=== PATIENT | female | born 1940 | race Hispanic/Latino ===

== ENCOUNTER 2017-04-18 14:36 | Observation (INO) | payer MEDICARE, BC ==
[2017-04-18 14:37] VITALS: BMI 25.2
--- NOTE | 2017-04-18 14:53 | ED PDOC ---
Arrival/HPI - General Historian: Patient, Family - History of Present Illness Time/Duration: Prior to Arrival Symptom Onset: Sudden Symptom Course: Worsening Quality: Pressure Severity Level: Severe Activities at Onset: Rest Context: Home <Татьяна Green - Last Filed: 04/18/17 16:48> <Francoise Hackett - Last Filed: 04/18/17 17:39> - General Chief Complaint: Chest Pain Time Seen by Provider: 04/18/17 14:48 - History of Present Illness Narrative History of Present Illness (Text): 04/18/17 15:03 This is a 76Y F with PMH CAD s/p CABG, stent and ICD who came to ED for sudden onset chest pain. It started 15min ago while she was at home. She is with her daughter who said they just had a meal and then patient had sudden onset of chest pain. This pain has not happened before. It is substernal and radiates down her L arm. She denies vision changes, trauma, SOB, n/v/d, numbness/tingling , fever or chills. Her tooling supervisor is Dr. Naik who she follows up with regularly. (Татьяна Green) Past Medical History - Provider Review Nursing Documentation Reviewed: Yes - Travel History Have you recently traveled outside [place] w/in the past 3 mons?: No - Infectious Disease Hx of Infectious Diseases: None - Cardiac Hx Hypertension: Yes Other/Comment: Defib - Musculoskeletal/Rheumatological Hx Falls: No - Gastrointestinal Hx Gastrointestinal Disorders: Yes Hx Constipation: Yes - Genitourinary/Gynecological Hx Genitourinary Disorders: No Hx Reproductive Disorders: No - Psychiatric Hx Substance Use: No - Surgical History Hx Coronary Artery Bypass Graft: Yes Hx Open Heart Surgery: Yes <Татьяна Green - Last Filed: 04/18/17 16:48> Family/Social History - Physician Review Nursing Documentation Reviewed: Yes Family/Social History: Hypertension Smoking Status: Never Smoked Hx Alcohol Use: No Hx Substance Use: No <Татьяна Green - Last Filed: 04/18/17 16:48> Allergies/Home Meds <Татьяна Green - Last Filed: 04/18/17 16:48> <Francoise Hackett - Last Filed: 04/18/17 17:39> Allergies/Adverse Reactions: Allergies No Known Allergies Allergy (Verified 04/18/17 14:51) Home Medications: Home Meds Medication Instructions Recorded Confirmed Unobtainable 04/18/17 04/18/17 Review of Systems - Physician Review All systems were reviewed & negative as marked: Yes - Review of Systems Constitutional: Normal. absent: Fatigue, Fevers Eyes: Normal. absent: Vision Changes ENT: Normal. absent: Hearing Changes Respiratory: Normal. absent: SOB, Cough Cardiovascular: Chest Pain. absent: Edema Gastrointestinal: Normal. absent: Abdominal Pain, Diarrhea, Nausea, Vomiting Genitourinary Female: Normal. absent: Dysuria, Frequency Musculoskeletal: Normal. absent: Arthralgias, Back Pain Neurological: Normal. absent: Headache, Dizziness Endocrine: Normal. absent: Diaphoresis Psychiatric: Normal. absent: Anxiety <Татьяна Green - Last Filed: 04/18/17 16:48> Physical Exam Vital Signs Reviewed: Yes Temperature: Afebrile Blood Pressure: Normal Pulse: Regular Respiratory Rate: Normal Appearance: Positive for: Well-Appearing, Non-Toxic, Comfortable Pain Distress: None Mental Status: Positive for: Alert and Oriented X 3 - Systems Exam Head: Present: Atraumatic, Normocephalic Pupils: Present: PERRL Extroacular Muscles: Present: EOMI Conjunctiva: Present: Normal Mouth: Present: Moist Mucous Membranes Neck: Present: Normal Range of Motion Respiratory/Chest: Present: Clear to Auscultation, Good Air Exchange, Other ( scar on chest midline- clear dry healed ). No: Respiratory Distress, Accessory Muscle Use Cardiovascular: Present: Regular Rate and Rhythm, Normal S1, S2. No: Murmurs Abdomen: Present: Normal Bowel Sounds. No: Tenderness, Distention, Peritoneal Signs Back: Present: Normal Inspection Upper Extremity: Present: Normal Inspection. No: Cyanosis, Edema Lower Extremity: Present: Normal Inspection. No: Edema Neurological: Present: GCS=15, CN II-XII Intact, Speech Normal Skin: Present: Warm, Dry, Normal Color. No: Rashes Psychiatric: Present: Alert, Oriented x 3, Normal Insight, Normal Concentration <Татьяна Green - Last Filed: 04/18/17 16:48> <Francoise Hackett - Last Filed: 04/18/17 17:39> Vital Signs Temp Pulse Resp BP Pulse Ox 04/18/17 15:12 80 18 111/55 L 95 04/18/17 15:05 81 16 124/59 L 97 04/18/17 14:48 98.0 F 83 18 136/67 100 Medical Decision Making Re-evaluation Time: 15:24 Reassessment Condition: Improving,but remains with symptoms <NormaТатьяна - Last Filed: 04/18/17 16:48> <Francoise Hackett - Last Filed: 04/18/17 17:39> ED Course and Treatment: 04/18/17 15:03 Impression: This is a 76Y F with PMH CAD s/p CABG and stent who came to ED for sudden onset chest pain Differential Diagnosis included but are not limited to: chest pain r/o ACS versus dissection Plan: -- EKG -- CXR -- CBC, CMP, Cardiac ISO -- ASA, Morphine -- Reassess and disposition EKG (1) Ordered, reviewed, and independently interpreted the EKG. Rate : 84 BPM Rhythm : NSR Interpretation : No ST-segment elevations or depressions, no T-wave inversions, normal intervals. Comparison : Similar to previous EKG EKG (2): Ordered, reviewed, and independently interpreted the EKG. Rate : 80 BPM Rhythm : NSR Interpretation : No ST-segment elevations or depressions, no T-wave inversions, normal intervals. Comparison : Similar to previous EKG. EKG (3): Ordered, reviewed, and independently interpreted the EKG. Rate : 78 BPM Rhythm : NSR Interpretation : No ST-segment elevations or depressions, no T-wave inversions, normal intervals. Comparison : Similar to previous EKG. CXR Portable HISTORY: chest pain COMPARISON: 08/04/2016. FINDINGS: LUNGS: There are low lung volumes. There is a running suture in the right lateral upper lobe. No focal consolidation. PLEURA: No significant pleural effusion identified, no pneumothorax apparent. CARDIOVASCULAR: The heart is normal in size. Status post CABG. There is a left sided AICD. OSSEOUS STRUCTURES: No significant abnormalities. VISUALIZED UPPER ABDOMEN: Normal. OTHER FINDINGS: None. IMPRESSION: No acute findings. Progress Notes: 04/18/17 15:05 Repeat EKG x 3 for suspicion of STEMI on leads V1-V3. No elevation seen. Patient reports she still has pain, but has slightly improved. Labs noted to have elevated WBC and mild hypokalemia. Troponin was negative. Potassium Replaced. Discussed results and plan to admit with patient who expresses understanding. All questions answered and there is agreement with the plan. Called Dr. Naik and Dr. Bhatia. Awaiting call back. 04/18/17 16:[address] Naik who is aware of the patient's admit. He reports that Dr. Hughes in the building and to page him. Dr. Hughes paged. Repeat EKG ordered due to continued chest pain. Another Morphine ordered as well. Patient refused Morphine at this time. Dr. Bhatia accepts patient into his service. Dr. Hughes aware of patient. Reports he will visit her in ED. EKG (4): Ordered, reviewed, and independently interpreted the EKG. Rate : 80 BPM Rhythm : NSR Interpretation : No ST-segment elevations or depressions, no T-wave inversions, normal intervals. Comparison : Similar to Previous EKG (Татьяна Green) A 76 year old female with chest pain. In agreement with resident note, which includes further HPI details. Patient was seen and evaluated with resident, came up with plan and treatment together. Serial ekgs ordered and reviewed. Cxray negative. Trop x [address] Hughes evaluated patient at bedside. 04/18/17 15:[address] Bhatia, who accepts patient admission to telemetry observation for chest pain. Cardiac consult placed. On re-evaluation, patient feels better and is in no acute distress. 04/18/17 17:34 (Francoise Hackett) - Lab Interpretations Lab Results: 04/18/17 14:45 04/18/17 14:45 Lab Results 04/18/17 14:45: PT 10.8, INR 1.00 04/18/17 14:45: Sodium 140, Potassium 3.1 L, Chloride 103, Carbon Dioxide 25, Anion Gap 15, BUN 18, Creatinine 0.9, Est GFR ( Amer) > 60, Est GFR (Non- Af Amer) > 60, Random Glucose 114 H, Calcium 9.1, Total Bilirubin 0.6, AST 26, ALT 31, Alkaline Phosphatase 86, Lactate Dehydrogenase 521, Total Creatine Kinase 53, Troponin I < 0.01, Total Protein 7.1, Albumin 4.2, Globulin 2.9, Albumin/Globulin Ratio 1.4 04/18/17 14:45: WBC 14.1 H D, RBC 4.29, Hgb 13.1, Hct 38.9, MCV 90.7, MCH 30.5, MCHC 33.7, RDW 13.2, Plt Count 209, MPV 10.9, Gran % 69.5 H, Lymph % (Auto) 19.3 L, [place] % (Auto) 9.9 H, Eos % (Auto) 1.2 L, Baso % (Auto) 0.1, Gran # 9.82 H, Lymph # 2.7, [place] # 1.4 H, Eos # 0.2, Baso # 0.02 - RAD Interpretation Radiology Orders: 04/18/17 14:52 CXR [CHEST PORTABLE] [RAD] Stat - Medication Orders Current Medication Orders: Aspirin (Aspirin Chewable) 81 mg PO DAILY FABRIZIO Clopidogrel Bisulfate (Plavix) 300 mg PO ONCE ONE Stop: 04/19/17 06:01 Pantoprazole Sodium (Protonix 40mg Ivpb) 40 mg in 100 mls @ 200 mls/hr IV STAT STA Stop: 04/18/17 17:57 Pantoprazole Sodium (Protonix Ec Tab) 40 mg PO DAILY FABRIZIO Potassium Chloride (K-Dur 20 Meq Er Tab) 40 meq PO ONCE ONE Stop: 04/18/17 20:01 Simethicone (Mylicon Liq) 40 mg PO QID FABRIZIO Discontinued Medications Aspirin (Ecotrin) 325 mg PO STAT STA Stop: 04/18/17 14:55 Last Admin: 04/18/17 15:03 Dose: 325 mg Aspirin (Aspirin) Confirm Administered Dose 325 mg .ROUTE .STK-MED ONE Stop: 04/18/17 15:01 Last Admin: 04/18/17 15:02 Dose: Morphine Sulfate (Morphine) 2 mg IVP STAT STA Stop: 04/18/17 14:55 Last Admin: 04/18/17 15:00 Dose: 2 mg Re-Assess: FRANK Pain Assessment Document 04/18/17 16:00 CO (Rec: 04/18/17 16:30 [id number] Pain Reassessment Is this a pain reassessment? Yes Sleep Is patient sleeping during reassessment? No Presence of Pain Presence of Pain Yes Pain Scale Used Pain Scale Used Numeric Location Pain Location Body Site Chest Description Description Constant Intensity of Pain at present 10 Acceptable Level of Pain 2 Morphine Sulfate (Morphine) Confirm Administered Dose 2 mg .ROUTE .STK-MED ONE Stop: 04/18/17 15:01 Last Admin: 04/18/17 15:09 Dose: Pantoprazole Sodium (Protonix Ec Tab) 40 mg PO STAT STA Stop: 04/18/17 16:52 Last Admin: 04/18/17 17:16 Dose: 40 mg Potassium Chloride (K-Dur 20 Meq Er Tab) 40 meq PO STAT STA Stop: 04/18/17 15:53 Last Admin: 04/18/17 16:29 Dose: 40 meq Simethicone (Mylicon Liq) 40 mg PO STAT STA Stop: 04/18/17 17:24 <Татьяна Green - Last Filed: 04/18/17 16:48> - PA / ENERGY OPERATIONS VICE PRESIDENT / Resident Statement MD/DO has reviewed & agrees with the documentation as recorded. MD/DO has examined the patient and agrees with the treatment plan. - Scribe Statement The provider has reviewed the documentation as recorded by the Scribe <Francoise Hackett - Last Filed: 04/18/17 17:39> - Scribe Statement Merly Meyers Provider Scribe Attestation: All medical record entries made by the Scribe were at my direction and personally dictated by me. I have reviewed the chart and agree that the record accurately reflects my personal performance of the history, physical exam, medical decision making, and the department course for this patient. I have also personally directed, reviewed, and agree with the discharge instructions and disposition. (Francoise Hackett) Disposition/Present on Arrival - Present on Arrival Any Indicators Present on Arrival: No History of DVT/PE: No History of Uncontrolled Diabetes: No Urinary Catheter: No History of Decub. Ulcer: No History Surgical Site Infection Following: CABG - Mediastinitis - Disposition Have Diagnosis and Disposition been Completed?: Yes Disposition Time: 15:45 Patient Plan: Admission <Татьяна Green - Last Filed: 04/18/17 16:48> <Francoise Hackett - Last Filed: 04/18/17 17:39> - Disposition Diagnosis: Chest pain Disposition: HOSPITALIZED Patient Problems: Current Active Problems Problem Status Onset Chest pain Acute Condition: FAIR
[2017-04-18] MEDS ORDERED: Aspirin 325 mg EC Tablets PO STA (14:54)
[2017-04-18] MEDS ORDERED: Morphine 2 mg/ml ISec IVP STA ×2 (14:54→16:04)
[2017-04-18] MEDS ORDERED: Morphine 2 mg/ml ISec ONE (15:00)
[2017-04-18 15:14] LABS: BASO # 0.02 K/mm3 (0.0-2.0); BASO % 0.1 % (0.0-3.0); EOS # 0.2 (0.0-0.7); EOS % 1.2 % (1.5-5.0); GRAN # 9.82 (1.4-6.5); GRAN % 69.5 % (50.0-68.0); HEMATOCRIT 38.9 % (36.0-48.0); LYMPH # 2.7 (1.2-3.4); LYMPH % 19.3 % (22.0-35.0); MEAN CELL VOLUME 90.7 fl (80.0-105.0); MEAN CORPUSCULAR HEMOGLOBIN 30.5 pg (25.0-35.0); MEAN CORPUSCULAR HGB CONC 33.7 g/dl (31.0-37.0); MEAN PLATELET VOLUME 10.9 fl (7.0-11.0); MONO # 1.4 (0.1-0.6); MONO % 9.9 % (1.0-6.0); RED CELL DISTRIBUTION WIDTH 13.2 % (11.5-14.5); WHITE BLOOD COUNT 14.1 10^3/ul (4.5-11.0)
[2017-04-18 15:22] LABS: ALB/GLOB RATIO 1.4 (1.1-1.8); ALKALINE PHOSPHATASE 86 U/L (38-126); ALT/SGPT 31 U/L (7-56); AST/SGOT 26 U/L (14-36); BILIRUBIN,TOTAL 0.6 mg/dL (0.2-1.3); BLOOD UREA NITROGEN 18 mg/dL (7-21); CALCIUM 9.1 mg/dL (8.4-10.5); CARBON DIOXIDE 25 mmol/L (21-33); CHLORIDE 103 mmol/L (98-107); GFR AFRICAN-AMERICAN > 60; GLUCOSE,RANDOM 114 mg/dL (70-110); POTASSIUM 3.1 mmol/L (3.6-5.0); SODIUM 140 mmol/L (132-148); TOTAL PROTEIN 7.1 g/dL (5.8-8.3)
--- NOTE | 2017-04-18 15:30 | RAD ---
HISTORY: chest pain COMPARISON: 08/04/2016. FINDINGS: LUNGS: There are low lung volumes. There is a running suture in the right lateral upper lobe. No focal consolidation. PLEURA: No significant pleural effusion identified, no pneumothorax apparent. CARDIOVASCULAR: The heart is normal in size. Status post CABG. There is a left sided AICD. OSSEOUS STRUCTURES: No significant abnormalities. VISUALIZED UPPER ABDOMEN: Normal. OTHER FINDINGS: None. IMPRESSION: No acute findings.
[2017-04-18 15:39] LABS: TROPONIN I < 0.01 ng/mL
[2017-04-18] MEDS ORDERED: Potassium Chloride 20 mEq ER Tab PO STA (15:52)
[2017-04-18] MEDS ORDERED: Pantoprazole 40 mg EC Tab PO STA (16:51)
[2017-04-18] MEDS ORDERED: Simethicone 40 mg/0.6 ml Liquid (30 ml) PO STA (17:23)
[2017-04-18] MEDS ORDERED: Pantoprazole 40mg/100ml IVPB 40 MG/100 ML BAG IV STA (17:28)
[2017-04-18] MEDS ORDERED: Potassium Chloride 20 mEq ER Tab PO ONE (20:00)
--- NOTE | 2017-04-18 20:40 | CARD ---
APPROVED REPORT EKG Measurement Heart [id number] MT [id number] <Conclusion> Normal sinus rhythm Nonspecific ST and T wave abnormality Abnormal ECG
--- NOTE | 2017-04-18 20:42 | CARD ---
APPROVED REPORT EKG Measurement Heart [id number] MT [id number] <Conclusion> Normal sinus rhythm Normal ECG
--- NOTE | 2017-04-18 20:45 | CARD ---
APPROVED REPORT EKG Measurement Heart [id number] WI 150P65 [id number] <Conclusion> Normal sinus rhythm Nonspecific ST abnormality Abnormal ECG
--- NOTE | 2017-04-18 20:46 | CARD ---
APPROVED REPORT EKG Measurement Heart [id number] VT 156P63 [id number] <Conclusion> Normal sinus rhythm Nonspecific ST and T wave abnormality Abnormal ECG
[2017-04-18] MEDS: Simethicone 40 mg/0.6 ml Liquid (30 ml) PO SCH (21:49)
[2017-04-19 06:40] LABS: BASO # 0.01 K/mm3 (0.0-2.0); BASO % 0.1 % (0.0-3.0); EOS % 0.2 % (1.5-5.0); GRAN # 10.17 (1.4-6.5); GRAN % 79.8 % (50.0-68.0); HEMATOCRIT 36.4 % (36.0-48.0); LYMPH # 1.4 (1.2-3.4); LYMPH % 11.3 % (22.0-35.0); MEAN CELL VOLUME 91.2 fl (80.0-105.0); MEAN CORPUSCULAR HEMOGLOBIN 30.3 pg (25.0-35.0); MEAN CORPUSCULAR HGB CONC 33.2 g/dl (31.0-37.0); MEAN PLATELET VOLUME 11.2 fl (7.0-11.0); MONO # 1.1 (0.1-0.6); MONO % 8.6 % (1.0-6.0); RED CELL DISTRIBUTION WIDTH 13.3 % (11.5-14.5); WHITE BLOOD COUNT 12.7 10^3/ul (4.5-11.0)
[2017-04-19] MEDS ORDERED: Lidocaine 2% Inj (20ml) ONE (07:00)
[2017-04-19] MEDS ORDERED: Iodixanol 320 MG/ML 100 ML BOTTLE IV ONE (07:01)
[2017-04-19] MEDS ORDERED: Iodixanol 320 MG/ML 200 ML BOTTLE IV ONE (07:01)
[2017-04-19] MEDS ORDERED: Nitroglycerin 50mg in D5W 50 MG/250 ML BOTTLE IV ONE (07:01)
[2017-04-19] MEDS ORDERED: Iohexol 350mgl/ml 50 ML ONE (07:01)
[2017-04-19 07:14] LABS: ALB/GLOB RATIO 1.2 (1.1-1.8); ALKALINE PHOSPHATASE 85 U/L (38-126); ALT/SGPT 27 U/L (7-56); AST/SGOT 39 U/L (14-36); BILIRUBIN,TOTAL 0.7 mg/dL (0.2-1.3); BLOOD UREA NITROGEN 12 mg/dL (7-21); CALCIUM 8.9 mg/dL (8.4-10.5); CARBON DIOXIDE 21 mmol/L (21-33); CHLORIDE 110 mmol/L (98-107); CHOLESTEROL 228 mg/dL (130-200); GFR AFRICAN-AMERICAN > 60; GLUCOSE,RANDOM 106 mg/dL (70-110); POTASSIUM 4.4 mmol/L (3.6-5.0); SODIUM 141 mmol/L (132-148); TOTAL PROTEIN 6.7 g/dL (5.8-8.3)
--- NOTE | 2017-04-19 08:19 | CON ---
DATE: 04/18/2017 ADDENDUM Addendum to initial consult dictated this morning. Previous chart reviewed. The patient had echocardiography on 08/23/2012 that showed the ejection fraction of 50%, mild hypokinesis of apical septal wall, transmitral consistent with grade 3 diastolic dysfunction, trace aortic regurgitation, trace [id number] tricuspid regurgitation, RV systolic pressure of 45. The echo was done after the CABG, when the patient admitted here for rehab. Since then, the patient did not have any echo or stress test, though she follows with Dr. Naik, but does not find any stress test. Information obtained from Dr. Naik's office and no stress test was done because the patient kept on refusing the stress test. Cath was offered to the patient for tomorrow morning, but the patient refusing and very much reluctant. Put tentatively tomorrow for cardiac catheterization tomorrow, keep n.p.o. if the patient is able to proceed for cardiac catheterization, rule out any ischemia. Otherwise, we will treat medically, start Lopressor 12.5 b.i.d. We will give dose of Protonixdose IV piggyback, Protonix and hold Lovenox for now because, if it is gastritis, can bleed, and if H and H remains stable and symptoms of gastritis does not subside, tomorrow convince the patient to have cardiac catheterization. If the patient is agreeable, proceed for cardiac catheterization tomorrow. We will treat unstable angina except Lovenox because of suspicious for gastritis, especially pt has firm believe that this is not her heart but stomach. Sarah Hughes MD GEORGINA
[2017-04-19] MEDS ORDERED: Midazolam 2 MG/2 ML VIAL ONE ×2 (09:06→10:34)
[2017-04-19] MEDS ORDERED: Phenylephrine 10 mg/ml Inj ONE (09:58)
[2017-04-19] MEDS ORDERED: Pantoprazole 40 mg EC Tab PO SCH (10:00)
[2017-04-19] MEDS: Simethicone 40 mg/0.6 ml Liquid (30 ml) PO SCH ×4 (10:16→21:35)
[2017-04-19] MEDS ORDERED: Adenosine 90 mg/30mL IV ONE (10:20)
[2017-04-19] MEDS ORDERED: Eptifibatide 20 mg/10mL Inj IVP ONE (10:34)
[2017-04-19] MEDS ORDERED: Sodium Chloride 0.9% 1,000 ML IV SCH (11:15)
--- NOTE | 2017-04-19 11:24 | PN ---
DATE: 04/19/2017 REASON FOR CONSULTATION: Followup acute coronary syndrome unstable angina/non-STEMI. SUBJECTIVE: The patient denies any chest pain, shortness of breath, or any palpitation. OBJECTIVE GENERAL: Lying flat on the bed. Awaiting to go to the specialist employee labor relations. VITAL SIGNS: Temperature afebrile, heart rate 84, blood pressure 119/63. HEENT: PERRLA. Extraocular muscles intact. NECK: Supple. No carotid bruit or thyromegaly. CHEST: Clear to auscultation. HEART: S1 and S2 regular. ABDOMEN: Soft. EXTREMITIES: Clubbing and cyanosis negative. LABORATORY DATA: Blood workup as follows: WBC 12.6, hemoglobin 12.1, hematocrit 36.4, platelet count 176. Chemistries shows sodium 141, potassium 4.4, chloride 110, carbon dioxide 21, anion gap of 14, BUN 12, creatinine 0.7. Troponin 3.8, first is 0.012, repeat 0.2, this morning 3.8. EKG shows normal sinus. No acute ST-T changes. IMPRESSION: Acute coronary syndrome non-ST elevation myocardial infarction, history of coronary artery disease, coronary artery bypass grafting 2013, history of myocardial infarction in the past history of coronary artery bypass grafting 2013 two vessels at [facility], history of automatic implantable cardioverter-defibrillator. EKG shows normal sinus. No acute ST-T changes. RECOMMENDATIONS: Discussed in length with the patient, the patient agreed we will proceed for cardiac catheterization. Yesterday, the patient was hesitant for cardiac catheterization but now agreed after the patient has been told about troponin positive. A 300 mg of Plaquenil given last night and will get 75 mg today and aspirin. Risk, benefit, and alternative discussed with the patient, the patient agreed we will proceed for cardiac catheterization. Thank you Dr. Castillo for providing us the opportunity in taking care of the patient Chasidy Gordon. Further recommendations after cardiac catheterization. We will follow with you. Sarah Hughes MD
--- NOTE | 2017-04-19 11:26 | CON ---
DATE: 04/18/2017 CONSULT SERVICE: Cardiology. REASON FOR CONSULTATION: Epigastric pain, chest pain, rule out acute coronary syndrome, and rule out gastritis. BRIEF CLINICAL HISTORY: This is a 76-year-old female with past medical history significant for coronary artery disease, history of CO, status post TPA in the past at [facility], later on the patient had AICD done at [facility], who was admitted in the e to [facility] with acute coronary syndrome. Cardiac catheterization was done, found to be critical disease and then subsequently the patient underwent on 08/06/2012 two-vessel bypass. Later on the patient was transferred here for rehab, since then the patient remained stable. This morning the patient woke up at 2 p.m. with epigastric pain, diaphoretic radiating to the back. Denies any typical chest pain, but pain radiating from epigastrium to the chest and the back. PAST MEDICAL HISTORY: Significant for coronary artery disease, as mentioned history of TPA in the past at [facility], history of AICD at [facility], history of PTCA in the past at [facility]. Later on patient had, in , acute coronary syndrome admitted to [facility], where the patient had a cardiac catheterization done and subsequently 2-vessel bypass in 08/06/2012 at [facility], history of hypertension, and hyperlipidemia. RECENT CARDIAC WORKUP: The patient did not have a stress test, was offered by Dr. Naik couple of times the stress test, but the patient does not want a stress test to be done. SOCIAL HISTORY: Used to smoke before, after bypass stopped smoking. CURRENT MEDICATIONS: The patient is taking Lopressor, aspirin, and a cholesterol medication. REVIEW OF SYSTEMS: As per HPI. PHYSICAL EXAMINATION: As follows: VITAL SIGNS: Temperature afebrile, heart rate 80, and blood pressure 101/55. HEENT: PERRLA intact. NECK: Supple. No carotid bruits. No thyromegaly. CHEST: Clear to auscultation. HEART: S1 and S2 regular. ABDOMEN: Soft. EXTREMITIES: Clubbing and cyanosis negative. LABORATORY DATA: Blood workup as follows: WBC 14.1, hemoglobin 13.1, hematocrit 38.9, and platelet count 209. Chemistry shows sodium 140, potassium 3.1, chloride 103, carbon dioxide 25, anion gap of 18, BUN 15, creatinine 0.9, and troponin 0.01. IMPRESSION: A 76-year-old female with a past medical history significant for coronary artery disease, status post myocardial infarction in the past, status post TPA in the past at [facility] status post automatic implantable cardioverter-defibrillator at [facility]. Later on, the patient had, in [place] Year[place] in 2012, acute coronary syndrome, cardiac catheterization subsequently underwent 2-vessel bypass at [facility] on 08/06/2012, admitted with epigastric pain, chest pain. Discussed in length with the patient for possibility for cardiac catheterization, but the patient thinks that is from the stomach and wants proton pump inhibitor rather than having considering cardiac catheterization. Discussion done for aspirin and Plavix, but since the patient thinks according to her it points more towards the gastritis rather than heart and is more adamant for GI than Cardiology, chest pain from cardiac. So, we will hold Lovenox for now, but we will gave the low dose of beta-kaitlin, aspirin and start 300 with Plavix tomorrow, serial CPK, troponin, and strongly consider cardiac catheterization. We will schedule tentatively for tomorrow cardiac catheterization because the patient was diaphoretic, chest pain radiating, history of coronary artery disease, more points in favor of ischemic chest pain, but we will give Mylicon 40 mL now and give a stat dose of IV piggyback of Protonix to cover both and further recommendation depending upon the hospital course. We will follow with you. I explained the patient that it is very difficult in early stage to differentiate between the belly pain and chest pain, but since the patient has an extensive cardiac history, we will also consider it priority because they do seem of cardiac origin. Discussed with the patient's attendant and also discussed with the ER physician. EKG shows normal sinus, no acute ST-T changes noted at this point. Thank you Dr. Osman Bhatia for providing opportunity in taking care of Heidi Umaña. Sarah Hughes MD
--- NOTE | 2017-04-19 13:13 | HP ---
HISTORY OF PRESENT ILLNESS: The patient is a 76-year-old woman with a past medical history of CAD s/p IA s/p PCI with stent placement s/p CABG, ischemic cardiomyopathy s/p AICD, hypertension and hyperlipidemia who presented to [facility] for evaluation of acute onset of chest pain. The patient reports being in her usual state of health until the day of presentation to the emergency department when she developed a sudden onset of sharp stabbing substernal chest pain. She reported that she was out to lunch with her daughter and after consuming approximately half of her lunch she developed a mild substernal/epigastric discomfort. Initially, the patient felt this was due to indigestion and did not think too much of her discomfort. On the drive home she experience increasing substernal chest discomfort, described as a squeezing sensation and by the time she had reached her home she noted diaphoresis associated with her symptoms, as well as radiation of her pain down the left arm. She immediately notified her and EMS was called and the patient was brought to the emergency department for further evaluation. Upon arrival to the emergency department she was noted to be afebrile and hemodynamically stable but with persistent chest discomfort. Initial laboratory studies were largely unremarkable with the exception of a mild leukocytosis of 14,000. The initial troponin was also negative and an EKG was unremarkable. Given her ongoing chest discomfort, she was admitted to the telemetry [facility] to rule out acute coronary syndrome. Several hours later, while cycling cardiac enzymes, she was noted to have a troponin leak with a troponin level reaching 3.8. This morning on examination, the patient reported resolution of her chest discomfort and presently offers no complaints. PAST MEDICAL HISTORY: As per HPI, also history of right upper lobe lung cancer , status post surgical resection of the right upper lobe. PAST SURGICAL HISTORY: As per HPI, also appendectomy, surgical resection of the right upper lobe secondary to lung cancer and right oophorectomy. ALLERGIES: NO KNOWN DRUG ALLERGIES. MEDICATIONS: Aspirin 81 mg p.o. daily, Lopressor 12.5 mg p.o. b.i.d., Lipitor 40 mg p.o. daily and Norvasc 5 mg p.o. daily. FAMILY HISTORY: Noncontributory. SOCIAL HISTORY: The patient denies smoking or illicit drugs abuse. She does report social alcohol use. REVIEW OF SYSTEMS: A 14-point review of systems is negative except as per HPI. PHYSICAL EXAMINATION: VITAL SIGNS: Temperature 98.4, pulse 84, blood pressure 119/67, respiratory rate 20, and oxygen saturation 97% on room air. GENERAL: No apparent distress. HEENT: PERRL. EOMI. No scleral icterus. No conjunctival pallor. NECK: Supple with full range of motion. No JVD. No bruits. LUNGS: Clear to auscultation. CARDIOVASCULAR: Regular rate and rhythm. Normal S1 and S2. CHEST: Healed midline sternotomy scar, AICD to left upper anterior chest wall. ABDOMEN: Normoactive bowel sounds. Soft, mild tenderness to palpation to epigastrium with voluntary guarding. No rigidity. No tympany. EXTREMITIES: No edema. NEUROLOGIC: Awake, alert, and oriented x3. No focal motor deficits. LABORATORY DATA: WBC 12.7 with 79% neutrophils, hemoglobin 12, hematocrit 36, and platelets 176. Chemistry reviewed and unremarkable. Troponin 0.23, 3.8. TSH 1.45. Cholesterol 228, LDL 166, triglycerides 90 and HDL 51. IMAGING STUDIES: Chest x-ray demonstrates no acute pathology and AICD with satisfactory lead placement. ASSESSMENT: The patient is a 76-year-old woman with a past medical history of CAD s/p IA s/p PCI with stent placement s/p CABG, ischemic cardiomyopathy s/p AICD, hypertension and hyperlipidemia who presented to [facility] for evaluation of acute onset of substernal chest pain and who was subsequently admitted to the telemetry [facility] to rule out acute coronary syndrome and who was found to have a [id number] myocardial infarction. PLAN: 1. Wdg-VW-bwsyaafpu IA. Input from Dr. Hughes of cardiology noted and appreciated and both Dr. Hughes and myself have talked to the patient regarding her cardiac issues and the need for cardiac catheterization for further evaluation. At present, she appears reluctant and states she wants to think about it. In the interim, she is being treated medically with aspirin, Plavix and beta-blockade. 2. CAD, status post IA, status post PCI with stent placement, status post CABG. Continue with care as per #1. 3. Ischemic cardiomyopathy, status post AICD. A repeat echocardiogram is pending. She remains clinically euvolemic. 4. Hypertension, blood pressure controlled. Continue with current medications. 5. Hyperlipidemia, continue with Lipitor 40 mg p.o. daily. Lipid panel is reviewed. 6. Gastritis, continue with Protonix 40 mg p.o. daily. 7. History of right upper lobe lung cancer, status post lobectomy. 8. Prophylaxis: Continue with Protonix for gastrointestinal prophylaxis. Deep venous prophylaxis is not indicated as the patient is ambulatory. CODE STATUS: Full code. Osman Bhatia MD MTDWendy
[2017-04-19 15:33] LABS: BASO # 0.01 K/mm3 (0.0-2.0); BASO % 0.1 % (0.0-3.0); EOS % 0.3 % (1.5-5.0); GRAN # 8.3 (1.4-6.5); GRAN % 74.8 % (50.0-68.0); HEMATOCRIT 37.1 % (36.0-48.0); LYMPH # 1.7 (1.2-3.4); MEAN CELL VOLUME 91.4 fl (80.0-105.0); MEAN CORPUSCULAR HEMOGLOBIN 30.5 pg (25.0-35.0); MEAN CORPUSCULAR HGB CONC 33.4 g/dl (31.0-37.0); MEAN PLATELET VOLUME 10.8 fl (7.0-11.0); MONO # 1.1 (0.1-0.6); MONO % 9.8 % (1.0-6.0); RED CELL DISTRIBUTION WIDTH 13.4 % (11.5-14.5); WHITE BLOOD COUNT 11.1 10^3/ul (4.5-11.0)
[2017-04-19 15:43] LABS: BLOOD UREA NITROGEN 10 mg/dL (7-21); CALCIUM 8.7 mg/dL (8.4-10.5); CARBON DIOXIDE 22 mmol/L (21-33); CHLORIDE 110 mmol/L (98-107); GFR AFRICAN-AMERICAN > 60; GLUCOSE,RANDOM 93 mg/dL (70-110); POTASSIUM 3.9 mmol/L (3.6-5.0); SODIUM 142 mmol/L (132-148)
[2017-04-19] MEDS ORDERED: Bacitracin 500 Units/gm Oint Foilpak UD ONE (17:54)
[2017-04-19 21:45] VITALS: RESP 20
--- NOTE | 2017-04-19 22:45 | CARD ---
APPROVED REPORT EKG Measurement Heart [id number] ID [id number] <Conclusion> Normal sinus rhythm Normal ECG
--- NOTE | 2017-04-19 23:05 | CARD ---
APPROVED REPORT Procedure(s) performed: Left Heart Catheterization FFR Of LAD ....0.78 (pre PTCA) PTCA with Stenting of Mid LAD with SHRUTHI For IR FFR..............0.98 (post PTCA) HISTORY The patient is a 76 year-old female with a history of : previous AK (> 7 days), previous diagnostic cath, tobacco history() : The patient is a former smoker , previous PCI (The PCI date was 08/01/2001), hypertension , previous CABG (The CABG date was 08/06/2012), dyslipidemia , Hx of two Vessel CABG at [facility], S/p AICD admitted with ACS/ NSTEMI ,max troponin 3.8. INDICATION The indication(s) include : unstable angina , non-STEMI . CASE TECHNIQUE The patient was brought urgently to the Cardiac Catheterization Laboratory in a fasting state and was prepped and draped in a sterile manner. The left wrist was infiltrated with 2% Lidocaine subcutaneous anesthesia. A 6 Fr Glidesheath (Radial) sheath was inserted into the left radial artery without difficulty. Coronary angiography was performed using coronary diagnostic catheters. The left coronary system was accessed and visualized with a Diagnostic ,5 Fr JL 3.5 catheter. The right coronary system was accessed and visualized with a Diagnostic ,5 Fr JR 3.5 catheter. The left ventricle was accessed and visualized with a 5 Fr Pigtail 145 (Angled) catheter. The left internal mammary artery was accessed and visualized with a Diagnostic ,5 Fr JR 3.5 catheter. The saphenous vein graft was accessed and visualized with a Diagnostic ,5 Fr RCB catheter. Left ventricular/Aortic Valve gradient assessed on pullback. Left ventriculogram was performed in VILLALOBOS projection. Closure device was deployed with a Fr TR Band (Regular) without any complications. The patient tolerated the procedure well and there were no complications associated with the procedure. Vessel Analysis The patient's coronary anatomy is right dominant. The left main coronary artery is a large size vessel with diffuse calcification noted throughout this vessel and with significant stenosis. There is a 20% stenosis in the distal segment. The left main bifurcates to the left anterior descending and circumflex. The left anterior descending artery is a medium size vessel with diffuse calcification noted throughout this vessel and with significant stenosis. Proximal to Mid multiple stent noted with Instent restenosis There is a 70% stenosis in the mid segment. Instent restenosis (IR) The first diagonal branch is a medium size vessel with diffuse calcification noted throughout this vessel and without significant stenosis. The circumflex artery is a medium size vessel with diffuse calcification noted throughout this vessel and without significant stenosis. The first obtuse marginal branch is a medium size vessel with diffuse calcification noted throughout this vessel and with significant stenosis. There is a 100% stenosis in the ostial segment. The right coronary artery is a medium size vessel with diffuse calcification noted throughout this vessel and with significant stenosis. There is a 100% stenosis in the proximal segment. The left internal mammary artery to the Not used . The saphenous vein graft to the first obtuse marginal branch segment is patent . The saphenous vein graft to the distal right coronary artery is patent But Distal RCA has 40-50% stenosis. Left Ventricle The left ventricle is borderline enlarged in size with normal contractility. There was no cardiomyopathy. The left ventricular ejection fraction is estimated to be 55%. The left ventricular end diastolic pressure is 15-18 mmHg. There was no gradient across the aortic valve upon pullback. IVUS Anticoagulation was achieved with Heparin. Fractional Flow [place] was performed on the mid left anterior descending artery segment vessel. A 6 Fr XB 3 Guide Catheter was used to engage the left main ostium. FINDINGS FFR ........ 0.78 (pre PTCA ) FFR..........0.98 ( Post PTCA) PCI Technique Lesion Anticoagulation was achieved with Heparin. Percutaneous coronary intervention was performed on the mid left anterior descending artery segment. The lesion stenosis prior to intervention was 70% with RAY 2 flow. A 6 Fr XB 3 Guide Catheter was used to engage the ostium. BALLOON DILATION A Balloon catheter 2.0 x 15 mm Sprinter RX was inserted and inflated up to 16.00atm for 17seconds. STENT DEPLOYMENT A drug-eluting stent 2.75 x 18 mm Resolute SHRUTHI was inserted and inflated up to 16.00atm for 17seconds. Final angiography reveals 0 % stenosis with RAY 3 flow. Conclusion [place] triple Vessel disease 70% Instent restenosis in Mid LAD( FFR--0.78) OM1 and RCA occluded [place] is free to chest wall ( not Used) SVG to OM1 is patent SVG to RCa is patent, but distal RCA has 505 steniosis. Preserved LV Fx. -Ef-50-55%, EDP-15-18 mmof Hg. Successful PTCA of Mid LAD with SHRUTHI,( FFR ...0.98 Post PTCA) Recommendations Daily ASA with Plavix for at least one year Aggressive Medical TherapyCardiac Risk Reduction Program Add statin, low dose beta kaitlin And BARI inhibitor as BP is tolerated. CC; Drs. Carl Grimm / Gumaro.
[2017-04-20 06:01] VITALS: PULSE 84; TEMP 98.2; O2SAT 97
[2017-04-20 07:36] LABS: BASO # 0.02 K/mm3 (0.0-2.0); BASO % 0.2 % (0.0-3.0); EOS # 0.1 (0.0-0.7); EOS % 0.9 % (1.5-5.0); GRAN # 8.43 (1.4-6.5); HEMATOCRIT 41.5 % (36.0-48.0); LYMPH # 1.5 (1.2-3.4); LYMPH % 13.3 % (22.0-35.0); MEAN CELL VOLUME 91.4 fl (80.0-105.0); MEAN CORPUSCULAR HGB CONC 32.8 g/dl (31.0-37.0); MEAN PLATELET VOLUME 11.4 fl (7.0-11.0); MONO # 0.9 (0.1-0.6); MONO % 8.6 % (1.0-6.0); RED CELL DISTRIBUTION WIDTH 13.5 % (11.5-14.5); WHITE BLOOD COUNT 10.9 10^3/ul (4.5-11.0)
[2017-04-20 08:05] LABS: ALB/GLOB RATIO 1.4 (1.1-1.8); ALKALINE PHOSPHATASE 95 U/L (38-126); ALT/SGPT 32 U/L (7-56); AST/SGOT 65 U/L (14-36); BILIRUBIN,TOTAL 0.7 mg/dL (0.2-1.3); BLOOD UREA NITROGEN 14 mg/dL (7-21); CALCIUM 9.3 mg/dL (8.4-10.5); CARBON DIOXIDE 27 mmol/L (21-33); CHLORIDE 106 mmol/L (98-107); GFR AFRICAN-AMERICAN > 60; GLUCOSE,RANDOM 105 mg/dL (70-110); POTASSIUM 4.1 mmol/L (3.6-5.0); SODIUM 144 mmol/L (132-148); TOTAL PROTEIN 7.4 g/dL (5.8-8.3)
--- NOTE | 2017-04-20 08:45 | PN ---
SUBJECTIVE: The patient was seen and examined at bedside on the telemetry richardson. No acute events overnight. She remains afebrile, hemodynamically stable and chest pain free s/p PCI with placement of SHRUTHI to the circle mid-LAD lesion. This morning the patient states she feels well, offers no complaints and states that she would like to go home. OBJECTIVE: VITAL SIGNS: Temperature 98.2, pulse 84, blood pressure 108/65, respiratory rate 20, and oxygen saturation 97% on room air. GENERAL: No apparent distress. HEENT: PERRL. EOMI. No scleral icterus. No conjunctival pallor. NECK: Supple with full range of motion. No JVD. No bruits. LUNGS: Clear to auscultation. CARDIOVASCULAR: Regular rate and rhythm. Normal S1 and S2. ABDOMEN: Normoactive bowel sounds, soft, nontender, and nondistended. EXTREMITIES: No edema. NEUROLOGIC: Awake, alert, and oriented x3. No focal motor deficits. LABORATORY DATA: CBC reviewed and unremarkable. CMP reviewed and unremarkable. ASSESSMENT: The patient is a 76-year-old woman with a past medical history of CAD s/p SC s/p PCI with stent placement s/p CABG, ischemic cardiomyopathy s/p AICD, hypertension and hyperlipidemia who presented to [facility] for evaluation of acute onset of substernal chest pain and who was subsequently admitted to the telemetry [facility] for management of non-ST elevation myocardial infarction and who is now status post PCI with drug-eluting stent placement to the mid LAD lesion and stable for discharge to home. PLAN: 1. NSTEMI s/p PCI with SHRUTHI placement to mid-LAD lesion. Input from Dr. Hughes of cardiology noted and greatly appreciated. The patient tolerated the procedure well and this morning remains hemodynamically stable and chest pain free. She will need to enroll in a cardiac risk reduction program. 2. CAD s/p SC s/p PCI with multiple stent placement s/p CABG. Continue with care as per #1. Continue with Aspirin 81 mg p.o. daily, Plavix 75 mg p.o. daily, Lipitor 40 mg p.o. daily and Lopressor 12.5 mg p.o. b.i.d. 3. Ischemic cardiomyopathy s/p AICD. A repeat TTE is pending. The patient remains clinically euvolemic. 4. Hypertension, blood pressure controlled. Continue with current medications. 5. Hyperlipidemia, continue with Lipitor 40 mg p.o. daily. 6. Gastritis; continue with Protonix 40 mg p.o. daily. 7. History of right upper lobe lung cancer, status post surgical resection. 8. Prophylaxis: Continue with Protonix for GI prophylaxis. DVT prophylaxis is not indicated as the patient is ambulatory. 9. Disposition; the patient for discharge to home. CODE STATUS: Full code. Osman Bhatia MD [facility] # [id number] MTDWendy
[2017-04-20 10:50] VITALS: BP 129/73
--- NOTE | 2017-04-20 11:59 | PN ---
DATE: 04/20/2017 REASON FOR CONSULTATION: Followup non-ST segment myocardial infarction, status post PTCA of [place] LAD, mid portion of LAD. SUBJECTIVE: Denies any chest pain, shortness of breath or any palpitation. Feels a lot better. OBJECTIVE: GENERAL: Lying flat on the bed, waking up. Denies any chest pain, shortness of breath or any palpitation. VITAL SIGNS: Temperature afebrile, heart rate 84, blood pressure 108/65. HEENT: PERRLA. Extraocular muscles intact. NECK: Supple. No carotid bruit or thyromegaly. CHEST: Clear to auscultation. HEART: S1 and S2 regular. ABDOMEN: Soft. EXTREMITIES: Clubbing and cyanosis negative. LABORATORY DATA: Blood workup as follows: WBC 10.9, hemoglobin 13.6, hematocrit 41.5, platelet count 182. Chemistries shows sodium 145, potassium 4.0, chloride 106, carbon dioxide 27, anion gap of 15, BUN 14, creatinine 0.9. Troponin maximum 3.8. IMPRESSION AND PLAN: A 76-year-old female with past medical history significant for coronary artery disease, status post percutaneous transluminal coronary angioplasty of left anterior descending many years ago at [facility], status post automatic implantable cardioverter-defibrillator, who had on annette unstable angina, admitted to [facility] in 2012, underwent two-vessel bypass on August 06. Since then, the patient has been stable, admitted here with acute coronary syndrome, non-ST elevation myocardial infarction, yesterday underwent cardiac catheterization and percutaneous transluminal coronary angioplasty of mid left anterior descending after having fractional flow reserve in left anterior descending found to be 0.78 and the postprocedure fractional flow reserve of 0.98, successfully percutaneous transluminal coronary angioplasty of left anterior descending done with the drug-eluting stent for in-stent restenosis. The patient remained stable; possibly going to be discharged on aspirin, Plavix, Lipitor 40 mg daily. We will discontinue Mylicon. We will discontinue . Continue baby aspirin. Continue atorvastatin 40 mg. Continue metoprolol. Continue Plavix daily. We will follow with you. Discussed with the patient at length. Discussed with the nursing staff taking care of the patient. Again, aspirin 81 mg, Plavix 75 mg daily, metoprolol 12.5 mg and atorvastatin 40 mg daily. Thank you Dr. Osman Bhatia for providing me the opportunity in taking care of the patient, Heidi Umaña. Sarah Hughes MD cc: Osman Bhatia MD
--- NOTE | 2017-04-20 23:05 | CARD ---
APPROVED REPORT EKG Measurement Heart [id number] <Conclusion> Normal sinus rhythm Nonspecific T wave abnormality Abnormal ECG
--- NOTE | 2017-04-21 08:26 | DS ---
ADMITTING DIAGNOSIS: Chest pain, rule out acute coronary syndrome. DISCHARGE DIAGNOSES: Non-ST elevation myocardial infarction, status post percutaneous coronary intervention with drug-eluting stent placement to the mid left anterior descending. SECONDARY DIAGNOSES: Coronary artery disease, status post myocardial infarction, status post coronary artery bypass graft, ischemic cardiomyopathy, status post automatic implantable cardioverter-defibrillator, hypertension, and hyperlipidemia. CONSULTATIONS: Dr. Hughes (cardiology). IMAGING STUDIES: Chest x-ray, which demonstrated no acute pathology. PROCEDURES: Cardiac catheterization with stent placement of drug-eluting stent to the midportion of the [place] left anterior descending. HISTORY OF PRESENT ILLNESS: The patient is a 76-year-old woman with past medical history of CAD, status post NE, status post PCI with stent placement, status post CABG, ischemic cardiomyopathy, status post AICD, hypertension, and hyperlipidemia who presented to [facility] for evaluation of acute onset of chest pain. She reports being in her usual state of health until the day of presentation to the emergency department when she developed a sudden onset of sharp stabbing, substernal chest pain. The patient reports that she was out to lunch with her daughter and after consuming approximately half of her lunch, she developed a mild substernal/epigastric discomfort. Initially, she attributed these symptoms to indigestion; however, on the drive home, she experienced increasing substernal chest discomfort described as a squeezing sensation and by the time she had reached her home, she noted diaphoresis associated with her symptoms as well as radiation of pain down the left arm. She immediately notified her and EMS was called and she was brought to the ED for further evaluation. Upon arrival to the ED, she was noted to be afebrile and hemodynamically stable, but with persistent chest discomfort. Initial laboratory studies were largely unremarkable including a negative initial troponin and an unremarkable EKG. She was subsequently admitted to the telemetry [facility]son for continued management of her chest pain and to rule out acute coronary syndrome. HOSPITAL COURSE: Upon admission to the telemetry richard[facility], the patient was evaluated by Dr. Hughes of cardiology. Given her cardiac history, she was advised that cardiac catheterization may be indicated; however, initially she had been reluctant. Upon cycling cardiac enzymes, a followup troponin level was noted to be elevated with a peak of 3.8. Given her troponin leakage and ongoing symptoms as well as her extensive cardiac history, she was again urged to reconsider cardiac catheterization and on reevaluation, she was amenable to proceeding with a cardiac catheterization. The patient was successfully taken to the labor supervisor with Dr. Hughes and underwent a cardiac catheterization via the radial approach with placement of a drug-eluting stent to the midportion of the [place] LAD. The patient tolerated the procedure well and no postprocedure complications were noted. The following day, she was noted to have resolution of her chest discomfort and was ambulating around the telemetry richardson with no cardiopulmonary symptoms and at this point in time was deemed stable for discharge to home. CONDITION: Good, improved. DISPOSITION: Home. DISCHARGE MEDICATIONS: Lopressor 12.5 mg p.o. b.i.d., Lipitor 40 mg p.o. daily, aspirin 81 mg p.o. daily, and Plavix 75 mg p.o. daily. DISCHARGE INSTRUCTIONS: The patient was advised to adhere to postcatheterization instructions as advised by Dr. Hughes. The patient was also advised to enroll in a cardiac risk reduction program. FOLLOWUP: The patient will follow up with her PMD within 1 week of discharge. The patient is to follow up with Dr. Hughes of cardiology as scheduled. Osman Bhatia MD
--- NOTE | 2017-04-21 15:17 | CARD ---
APPROVED REPORT EXAM: Two-dimensional and M-mode echocardiogram with Doppler and color Doppler. INDICATION Chest Pain 2D DIMENSIONS Left Atrium (2D)2.6 (1.6-4.0cm)IVSd1.0 (0.7-1.1cm) LVDd3.9 (3.9-5.9cm)PWd1.0 (0.7-1.1cm) LVDs2.9 (2.5-4.0cm)FS (%) 25.3 % LVEF (%)50.5 (>50%) M-Mode DIMENSIONS Aortic Root2.80 (2.2-3.7cm)Aortic Cusp Exc.1.50 (1.5-2.0cm) Aortic Valve AoV Peak Vlzpzlxd941.0cm/[place] Peak GR.7mmHg Mitral Valve MV E Nfggltlp34.1cm/sMV A Wigstnyc22.8cm/sE/A ratio0.9 TDI E/Lateral E'0.0E/Medial E'0.0 Tricuspid Valve TR Peak Ohjulfnw355tn/sRAP [id number] Peak Gr.20mmHg [id number] LEFT VENTRICLE The left ventricle is normal size. There is normal left ventricular wall thickness. The left ventricular function is normal.EF-55% There is normal LV segmental wall motion. Transmitral Doppler flow pattern is Grade III-reversible restrictive diastolic dysfunction. No left ventricle thrombus noted on this study. There is no ventricular septal defect visualized. There is no left ventricular aneurysm. There is no mass noted in the left ventricle. RIGHT VENTRICLE The right ventricle is normal size. There is normal right ventricular wall thickness. The right ventricular systolic function is normal. There is a pacemaker lead in the right ventricle. ATRIA The left atrium size is normal. The right atrium size is normal. There is a catheter/pacemaker lead seen in the right atrium. The interatrial septum is intact with no evidence for an atrial septal defect. AORTIC VALVE The aortic valve is thickened but opens well. The aortic valve is mildly sclerotic. No aortic regurgitation is present. There is no aortic valvular stenosis. There is no aortic valvular vegetation. MITRAL VALVE The mitral valve is thickened but opens well. Mitral regurgitation is trace. There is no mitral valve stenosis. There is no evidence of mitral valve prolapse. TRICUSPID VALVE The tricuspid valve leaflets are thickened , but open well. There is trace to mild tricuspid regurgitation.RVSP-30 Mmof Hg. There is no tricuspid valve stenosis. There is no tricuspid valve prolapse or vegetation. PULMONIC VALVE The pulmonary valve is normal in structure. There is no pulmonic valvular regurgitation. There is no pulmonic valvular stenosis. GREAT VESSELS The aortic root is normal in size. The ascending aorta is normal in size. The pulmonary artery is normal. The IVC is normal in size and collapses >50% with inspiration. PERICARDIAL EFFUSION There is no pleural effusion. There is a trace pericardial effusion. <Conclusion> Normal Chamber Size. EF-55% PPM/AICD lead noted in RA/RV Mitral regurgitation is trace. There is trace to mild tricuspid regurgitation.RVSP-30 Mmof Hg. There is a trace pericardial effusion. The IVC is normal in size and collapses >50% with inspiration.
== END 2017-04-20 11:52 | disposition home or self-care (01) ==
LOC: ED 14:36 → ERH 15:44 → 2RNO 19:17 → 2RSO 04-19 11:12
PROVIDERS: ADMIT Student in an Organized Health Care Education/Training Program; ATTEND Student in an Organized Health Care Education/Training Program
DX: I21.4 Non-ST elevation (NSTEMI) myocardial infarction (principal); T82.855A Stenosis of coronary artery stent, initial encounter; I25.110 Atherosclerotic heart disease of native coronary artery with unstable angina pectoris; I25.5 Ischemic cardiomyopathy; E78.5 Hyperlipidemia, unspecified; I10 Essential (primary) hypertension; K29.70 Gastritis, unspecified, without bleeding; Y83.1 Surgical operation with implant of artificial internal device as the cause of abnormal reaction of the patient, or of later complication, without mention of misadventure at the time of the procedure; K59.00 Constipation, unspecified; I25.2 Old myocardial infarction; Z85.118 Personal history of other malignant neoplasm of bronchus and lung; Z95.1 Presence of aortocoronary bypass graft; Z95.810 Presence of automatic (implantable) cardiac defibrillator; Z87.891 Personal history of nicotine dependence
CPT/HCPCS: 36415; 71010; 80053; 80061; 82550; 82553; 83036; 83615; 84443; 84484; 85025; 85175; 85610; 93005; 93306; 93459; 93571; 96374; 99152; 99153; 99285; C1725; C1769; C1874; C1887; C9113; C9600; G0378; J0153; J1327; J1644; J1940; J2250; J2270; J3010; J7040; Q9967

== ENCOUNTER 2018-08-25 10:43 | Outpatient (CLI) | payer MEDICARE, BC | END 2018-08-25 10:44 | disposition home or self-care (01) | LOC: LAB 10:43 ==